=== PATIENT | male | born 1995 | race African-American/Black ===

== ENCOUNTER 2019-11-29 07:18 | Outpatient (CLI) | payer OTHER ==
--- NOTE | 2019-11-29 08:58 | MRI Report ---
Reason: PAIN IN RT ANKLE Procedure Date: 11/29/2019 Accession Number: [id number] / [id number] Procedure: MRI - Ankle RT W/O CPT Code: Final Report FULL RESULT: EXAM: RIGHT ANKLE/HINDFOOT MRI WITHOUT CONTRAST EXAM DATE: 11/29/2019 08:33 AM. CLINICAL HISTORY: Rolled his ankle while running last May. Pain along the lateral surface of the ankle. COMPARISON: None. TECHNIQUE: Multiplanar, multisequence T1-weighted and fluid-sensitive sequences of the ankle/hindfoot without contrast. Other: None. FINDINGS: Bones: There is focal bony overgrowth of the superolateral margin of the anterior process of the calcaneum. There is edema of the bony overgrowth. There are 2 nonunited bony fragments adjacent to the inferolateral margin of the talus. The anterior talocalcaneal ligament appears discontinuous, and edematous. The findings suggest a midfoot sprain with avulsion fractures of the calcaneum and talus. There is edema of the talus surrounding the sinus tarsi, also in keeping with a midfoot sprain. The tibia and fibula appear intact. Articular Cartilage: Unremarkable. Ligaments: The tibiofibular ligaments appear intact. There is mild thinning of the anterior talofibular ligament suggestive of a prior low-grade partial thickness tear. The calcaneofibular and posterior talofibular ligaments are intact. The deep and superficial deltoid and spring ligaments are intact. Anterior Tendons: The tibialis anterior, extensor hallucis longus, and extensor digitorum longus tendons are unremarkable. Medial Tendons: The tibialis posterior, flexor digitorum longus, and flexor hallucis longus tendons are unremarkable. Lateral Tendons: The peroneus brevis and longus are unremarkable. Achilles Tendon: The Achilles tendon is unremarkable. Musculature: No edema or fatty atrophy. Other: There is a small ankle joint effusion. The contents of the sinus tarsi and tarsal tunnel are unremarkable. No plantar fasciitis. The subcutaneous tissues are unremarkable. IMPRESSION: 1. Findings consistent with a prior midfoot sprain, including avulsion fractures of the adjacent margins of the calcaneum and talus, at the attachments of the anterior talocalcaneal ligament. Healed fracture of the superior margin of the anterior process of the calcaneum. 2. Low-grade partial-thickness tear of the anterior talofibular ligament. 3. Small ankle joint effusion. RADIA
== END 2019-11-29 07:19 | disposition home or self-care (01) ==
LOC: DI 07:18
PROVIDERS: ATTEND Family Medicine
DX: S93.491A Sprain of other ligament of right ankle, initial encounter (principal); M25.471 Effusion, right ankle

== ENCOUNTER 2021-11-04 08:00 | Outpatient (CLI) | payer OTHER ==
[2021-11-04 22:20] LABS: CHLAMYDIA TRACHOMATIS DNA NEGATIVE (NEGATIVE); NEISSERIA GONORRHOEAE DNA NEGATIVE (NEGATIVE)
== END 2021-11-04 08:01 | disposition home or self-care (01) ==
LOC: LAB.N 08:00
PROVIDERS: ATTEND Family Medicine
DX: N34.2 Other urethritis (principal)
CPT/HCPCS: 87491; 87591; 87661

== ENCOUNTER 2022-01-16 10:17 | Outpatient (CLI) | payer OTHER ==
[2022-01-16 11:05] VITALS: BP 154/99
--- NOTE | 2022-01-16 11:05 | SLEEP CARE CONSULTATION ---
Information from patient questionnaire entered by Eliane Méndez MA. I have reviewed and concur with the information entered by Eliane Méndez MA. This document represents the service I personally performed and the decisions made by , Phylicia Wang ARNP. History of Present Illness Service Date and Time: 01/16/2022 1017 Reason for Visit: New patient (ONSET 06/2019, NO PRIORS,) Chief Complaint: reports: Unrefreshed sleep, Snoring, Excessive daytime sleepin ess, Observed pauses in breathing, Fatigue, Frequent awakenings at night Date of Onset: 12 MONTHS Usual bedtime: 9 PM - 0200 Time it takes to fall asleep: 1 HOUR Snores at night: Yes Observed to quit breathing while asleep: Yes Sleeps alone due to snoring: No Number of times waking at night: 4-6 Reasons for waking at night: reports: Snoring, Pain, Bathroom. denies: Choking, Gasping for air Toss, Turn, or Twitch while sleeping: Yes (notices legs twitch when falling asleep) Recalls having dreams: Yes Usually gets out of bed at: 0300; weekends [id number] Feels refreshed in the morning: No Morning headache: No Sleepy or fatigued during the day: Yes (he will nod off if mind is not actively engaged in something) Ever fallen asleep while driving: No Takes day naps: No Dreams during day naps: No Prior sleep studies: No Additional HPI information: I had the pleasure of seeing MARQUISE DALEY today regarding the possibility of him having a sleep disorder. His current complaints are excessive daytime sleepiness, frequent night awakenings, observed pauses in breathing and snoring. He is concerned that he is only able to sleep 5-6 hours and he is waking up constantly during the night. His has told him he snores loudly and has pauses in breathing when sleeping. He states he is tired all the time during the day. He has had many different schedules since starting with the [employer] in 2018. He is on a day schedule this week but is going back to nights next week. When he spoke with his mother recently, she told him she was just diagnosed with SCOTTIE and is starting on a CPAP machine. - Parasomnia Symptoms Ever been unable to move upon waking from sleep: No Walks in sleep: No Talks in sleep: No Ever acted out dreams in sleep: No Ever felt weak in the knees when startled or emotional: No Bothered by creepy, crawly, restless sensations in legs: No Problems with memory or concentration: Yes (hard to concentrate on conversations or other things like reading) Subjective Initial [place] Sleepiness Scale score: 17 (01/2022) Past Medical History Past Medical History: reports: Anxiety, Other (ANKLE - BONE FRAG FROM ROLLING IT RIGHT) 2015, LEFT - KNEE Cartilage REPL. 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 Patient is and lives in . Have you smoked in the past 12 months: No Alcohol use: Yes Alcohol amount and frequency: 2 X WEEKLY Caffeine use: No Family History Family history of sleep disordered breathing: Yes Family Hx Sleep Apnea: Mother: Sleep apnea - Treated Allergies and Home Medications Known drug allergies: No Drug allergies reviewed: Yes (NKDA) Home medication list reviewed: Yes Allergy and home medication list: Supplements Whey protein shakes Multivitamin Review of Systems Review of systems same as previous: Yes (weight alternates due to body building; at weight he desires now) Cardiovascular: denies: high blood pressure Respiratory: denies: shortness of breath Gastrointestinal: denies: heartburn Neurological: denies: headaches, head trauma Psychiatric: reports: anxiety Ear/Nose/Throat: reports: wisdom teeth removed. denies: sinus problems, injury to nose, tonsillectomy Endocrine: denies: thyroid disease Musculoskeletal: reports: joint pain, neck pain, back pain Immunologic: reports: allergies to food or environment Physical Exam Vital signs obtained and entered by: Emilio MÉNDEZ [facility] Blood Pressure: 154/99 (RIGHT, PULSE 65, RESP 18, ) Heart Rate: 71 O2 Saturation: 98 (PAPER MASK) Height: 5 ft 9 in Weight: 250 lb Weight change since last visit: CYCLE WITH WEIGHT, WORKS OUT, Body Mass Index: 36.9 BMI Classification: Obese Neck circumference: 16 (INCHES) Mouth and throat: normal Soft palate: long Hard palate: normal Uvula: long Uvula visualization: 100% Mallampati Class I Tongue: normal in size Tonsils: 1+ Neck: normal w/o lymphadenopathy or thyromegaly Heart: regular rate and rhythm Lungs: clear bilaterally Impression and Plan 1. Suspected Obstructive Sleep Apnea-Hypopnea Syndrome, as suggested by a history of loud and irregular snoring, observed cessation of breath while asleep, frequent awakening during the night, unrefreshed sleep, cognitive impairment, and excessive daytime sleepiness. Narrow oropharynx and obesity are common predisposing factors for obstructive sleep apnea-hypopnea syndrome. I recommend proceeding to polysomnography to confirm the diagnosis and to assess severity. If the patient has significant sleep disordered breathing, a manual CPAP titration study will also be performed to find the optimal treatment pr essure. I informed the patient of what the sleep studies involve and after some discussion, obtained agreement to proceed. The pathophysiology of obstructive sleep apnea-hypopnea syndrome was discussed with the patient and health risks of cardiovascular and cerebrovascular disease if not treated. 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 Patient agreed to plan. * Schedule polysomnography * Avoid long distance driving or driving when feeling sleepy. * Avoid alcohol, sedative and muscle relaxant around bedtime. * Attempt to lose weight. * Review instructions provided by trained office staff on how to prepare for the sleep study. * Return for follow-up after sleep study completed. Counseling Topics: Weight loss health impact Visit Type: In Office Time Spent with Patient (minutes): 31 Provider Statement: I spent 100% of the Face to Face Visit with the patient with greater than 50% spent counseling the patient and coordination of care.
== END 2022-01-16 10:18 | disposition home or self-care (01) ==
LOC: SC 10:17
PROVIDERS: ATTEND Nurse Practitioner Family
DX: R06.83 Snoring (principal); G47.8 Other sleep disorders; R06.81 Apnea, not elsewhere classified; G47.10 Hypersomnia, unspecified; R53.83 Other fatigue; E66.9 Obesity, unspecified; Z68.36 Body mass index [BMI] 36.0-36.9, adult
CPT/HCPCS: 99203; 99212

== ENCOUNTER 2022-02-13 20:43 | Outpatient (CLI) | payer OTHER | END 2022-02-13 20:44 | disposition home or self-care (01) | LOC: SC 20:43 | PROVIDERS: ATTEND Nurse Practitioner Family | DX: G47.33 Obstructive sleep apnea (adult) (pediatric) (principal) | CPT/HCPCS: 95810 ==

== ENCOUNTER 2022-03-02 08:00 | Outpatient (CLI) | payer OTHER | END 2022-03-02 23:59 | disposition home or self-care (01) | LOC: LAB.N 08:00 | PROVIDERS: ATTEND Family Medicine | DX: N34.2 Other urethritis (principal) | CPT/HCPCS: 87086 ==

== ENCOUNTER 2022-03-10 13:34 | Outpatient (CLI) | payer OTHER ==
[2022-03-10 14:35] VITALS: BP 148/83
--- NOTE | 2022-03-10 14:35 | SLEEP CARE CONSULTATION ---
Information from patient questionnaire entered by Eliane Méndez MA. I have reviewed and concur with the information entered by Eliane Méndez MA. This document represents the service I personally performed and the decisions made by , Phylicia Wang ARNP. History of Present Illness Service Date and Time: 03/10/2022 1334 Accompanied by: Spouse Initial [place] Sleepiness Scale score: 17 (01/2022) Current [place] Sleepiness Scale score: 21 Additional HPI information: MARQUISE DALEY returns with spouse for follow up and results of the recently performed polysomnography. I explained the pathophysiology behind obstructive sleep apnea. We then spent quite a bit of time discussing different treatment options. For mild obstructive sleep apnea, surgery and oral appliance are alternatives to nasal CPAP therapy but in moderate or severe cases, nasal CPAP is the most effective and reliable treatment. Because apnea is primarily in supine position, then positional management therapy could be effective. Methods discussed such as positioning with pillows to prevent supine sleep. I reviewed the impact of weight changes on sleep apnea and strongly recommended losing weight. After some discussion, the patient opted to go with the nasal CPAP therapy. Nasal autoCPAP set at 4-15 cmH20 will be ordered with rationale explained. A manual titration study will be ordered if unable to find optimal pressure with office adjustments. I explained how CPAP machine works and what to expect when using the machine. Using CPAP every night in order to get used to it was emphasized. Patient advised to put CPAP mask on before getting into bed so as not to fall asleep without CPAP. To assist acclimation to CPAP use, it could also be used for a short time during day while reading or watching TV. The patient was instructed to call the CPAP supplier to discuss any mechanical problem that may occur. If the mask given is uncomfortable or is difficult to keep on through the night even with adjustment, contact the CPAP supplier as many will replace with another mask style if notified before 30 days. If snoring or perceives is not getting enough air or too much air from the machine, notify this office. Patient counseled not drink alcohol less than 4 hours before bedtime as it can increase snoring and apnea. Patient was cautioned about risks of drowsy driving until sleepiness symptoms resolve. Sleep Study - Results Type of Sleep Study: Polysomnography (F/U POLY, 02/13/2022 [facility], POS,) Prior sleep studies: No Polysomnography/Home Sleep Study results: IMPRESSION: The quality of the study is good. The patient had normal sleep efficiency. The sleep architecture was relatively normal as well considering the first night effect. Respiratory monitoring showed mild obstructive sleep apnea-hypopnea (AHI = 6.6) associated with oxyhemoglobin desaturation and mild hypoxia (fannie oxygen saturation of 84%). The respiratory events occurred almost exclusively during supine REM sleep (supine AHI = 12.6; non-supine = 1.51). Snore was light to moderate in intensity. There was no significant periodic leg movement of sleep. Cardiac rhythm was normal sinus rhythm without significant arrhythmia. No abnormal behavior (parasomnia) observed during the night. Allergies and Home Medications Home medication list reviewed: Yes (no changes) Review of Systems Review of systems same as previous: Yes (no changes) Physical Exam Vital signs obtained and entered by: JONATHAN Blood Pressure: 148/83 Cuff size: wrist (right) Heart Rate: 62 O2 Saturation: 97 Height: 5 ft 9 in Weight: 261 lb 12.8 oz Body Mass Index: 38.6 BMI Classification: Obese Impression and Plan 1. Obstructive Sleep Apnea-Hypopnea Syndrome, mild, with lowest oxygen saturation of 84%. Obviously this is the cause of the patients symptoms of unrefreshed sleep, and excessive daytime sleepiness. Positive pressure therapy could benefit anxiety. As mentioned above, the patient will be started on nasal autoCPAP therapy with pressure set at 4-15 cmH2O. Compliance guidelines also reviewed. A copy of compliance guidelines will be given for reference at check out. Because the apnea is more severe supine, I instructed to avoid sleeping supine using pillow positioning until able to start CPAP use. * Nasal auto CPAP therapy, pressure at 4-15 cm H2O. * Attempt to lose weight. * Avoid alcohol consumption near bedtime. * Avoid supine sleep until using CPAP. * The patient is again cautioned about driving until sleepiness completely resolves. * Return one month after CPAP obtained. I will assess response to therapy and compliance at that time. Counseling Topics: Sleeping position, Weight loss health impact Visit Type: In Office Time Spent with Patient (minutes): 26 Provider Statement: I spent 100% of the Face to Face Visit with the patient with greater than 50% spent counseling the patient and coordination of care.
== END 2022-03-10 13:35 | disposition home or self-care (01) ==
LOC: SC 13:34
PROVIDERS: ATTEND Nurse Practitioner Family
DX: G47.33 Obstructive sleep apnea (adult) (pediatric) (principal); E66.9 Obesity, unspecified; Z68.38 Body mass index [BMI] 38.0-38.9, adult
CPT/HCPCS: 99212; 99213

== ENCOUNTER 2022-05-13 12:37 | Outpatient (CLI) | payer OTHER ==
--- NOTE | 2022-05-13 15:48 | MRI Report ---
PROCEDURE: Lumbar Spine W/O INDICATIONS: LOW BACK PAIN TECHNIQUE: Noncontrast sagittal T1 spin echo and T2 fast echo, sagittal STIR, axial T1 and T2 fast spin echo thr ough the lumbar spine. In cases with scoliosis, additional coronal T2 fast spin echo may be performe d. COMPARISON: None. FINDINGS: Image quality: Excellent. Alignment and Curvature: No plain films are available for comparison. Thus, for numbering purposes, 5 lumbar type vertebral bodies will be presumed for the current report. This should be confirmed with plain film correlation prior to any lumbar spinal intervention. There is loss of normal lumbar lordo sis. Bone Marrow: Marrow is of normal overall signal. No acute vertebral body compression fractures. Mi ld reactive signal throughout the endplates of the thoracolumbar spine. Spinal Cord: Conus medullaris terminates at the lower L1 level. Visualized cord demonstrates normal signal and size. Paraspinous Soft Tissues: No paravertebral masses. T12-L1: Normal in appearance. L1-L2: Normal in appearance. L2-L3: Mild diffuse disc bulge. Mild canal stenosis. Mild bilateral foraminal stenosis. L3-L4: Mild diffuse disc bulge. Mild epidural lipomatosis. Mild canal stenosis. Mild bilateral fora barrera stenosis. L4-L5: Mild disc desiccation and diffuse disc bulge. Mild facet and ligament flavum hypertrophy. Mi ld canal stenosis. Moderate subarticular foraminal stenosis bilaterally. L5-S1: Mild bilateral facet hypertrophy. No significant canal stenosis. Moderate subarticular shey inal stenosis bilaterally. IMPRESSION: 1. Multilevel degenerative disc and facet disease, in addition to epidural lipomatosis and ligamentum flavum hypertrophy. 2. Mild multilevel canal stenoses. 3. Multilevel foraminal stenoses, worst at L4-L5 and L5-S1 where there are moderate foraminal stenose s. Reviewed by: Laura Freedman MD on 05/13/2022 3:47 PM PDT Approved by: Laura Freedman MD on 05/13/2022 3:47 PM PDT Station ID: [id number]
== END 2022-05-13 12:38 | disposition home or self-care (01) ==
LOC: DI 12:37
DX: M51.36 Other intervertebral disc degeneration, lumbar region (principal); M48.061 Spinal stenosis, lumbar region without neurogenic claudication; M47.816 Spondylosis without myelopathy or radiculopathy, lumbar region; M51.37 Other intervertebral disc degeneration, lumbosacral region; M48.07 Spinal stenosis, lumbosacral region; M47.817 Spondylosis without myelopathy or radiculopathy, lumbosacral region

== ENCOUNTER 2022-06-04 11:32 | Outpatient (CLI) | payer OTHER ==
[2022-06-04 12:06] VITALS: BP 126/74
--- NOTE | 2022-06-04 12:06 | SLEEP CARE CONSULTATION ---
Information from patient questionnaire entered by Lana Aceves. I have reviewed and concur with the information entered by Lana Aceves. This document represents the service I personally performed and the decisions made by , Phylicia Wang ARNP. History of Present Illness Service Date and Time: 06/04/2022 1132 Previous diagnosis: Mild, Obstructive Sleep Apnea-Hypopnea Syndrome AHI: 6.6 (in 2021) Reason for follow up: first compliance (SET UP 03/31/22, RESMED) Equipment type: CPAP Equipment obtained from: Other ([facility]; getting supplies) Mask style: Full face Backup mask available: No (will keep old mask when replaced) Last cushion change: 1 month Prior sleep studies: No Type of Sleep Study: Polysomnography (F/U POLY, 02/13/2022 [facility], POS,) HPI additional information: MARQUISE DALEY was diagnosed to have mild, AHI 6.6, obstructive sleep apnea- hypopnea syndrome and returned today for CPAP therapy first compliance follow- up. Sleep Study - Results Type of Sleep Study: Polysomnography (F/U POLY, 02/13/2022 [facility], POS,) Prior sleep studies: No CPAP Compliance Data - Data Reviewed with Patient Average duration of nightly device use: 2 hours 55 minutes Compliance rate %: 17 (32/60 days used) Current pressure setting (cmH2O): 4-15 (median 5.4, avg 7.9, max 8.7) Average residual AHI: 0.5 Average large leak: 1.1 Subjective Patient concerns: reports: mask discomfort, air blowing in eyes, condensation in mask/hose, nasal congestion, dry mouth, nose, throat (dry mouth and nose). denies: aerophagia, mask leak noise, epistaxis Observed to snore while using device: No Current pressure setting perceived as: comfortable On therapy, patient: reports: sleeping better, more rested overall. denies: drowsiness while driving Initial [place] Sleepiness Scale score: 17 (01/2022) Current [place] Sleepiness Scale score: 16 (06/04/22) Allergies and Home Medications Home medication list reviewed: Yes (no changes) Review of Systems Review of systems same as previous: Yes (no changes) Physical Exam Vital signs obtained and entered by: ASIA RASHID Blood Pressure: 126/74 (left arm ) Cuff size: long Heart Rate: 60 O2 Saturation: 97 Height: 5 ft 9 in Weight: 223 lb Weight change since last visit: 27 lbs loss Body Mass Index: 32.9 BMI Classification: Obese Impression and Plan 1. Obstructive Sleep Apnea-Hypopnea Syndrome, mild, with poor treatment compliance and good apnea control. On CPAP therapy, the patient has better sleep quality and is more rested overall. Patient has been having difficulty with his mask because his nose is congested and he cannot breathe through it. He chose a fullface mask and he thinks it is comfortable but sometimes he gets some air leaking into his eyes. I advised patient to use nasal saline to rinse out his nose prior to bedtime. He was also encouraged to increase the humidity since his humidity is set at 2 and heated hose at 72 degrees. His mouth has also been a little bit dry. Nasal congestion can be reduced with increasing the CPAP humidity as shown on sample device. The heated hose can be adjusted higher if condensation with higher humidity setting. Saline nasal spray may be used prior to CPAP to clear nasal secretions and wash off any nasal allergens to facilitate nasal breathing. In addition, a steamy shower before bed will often assist nasal drainage. Verbal instructions given on how to change humidity and heated hose settings with rationale explaining why to change. Patient feels the pressure has been good. The patients pressure will be changed to autoCPAP 7-10 cmH20 to reflect pressure being used. Patient advised to contact me if pressure change is uncomfortable so that it can be adjusted. Goals for apnea control discussed. Patient's apnea severity and rationale for treatment to reduce apnea, improve sleep quality and reduce cardiovascular and cerebrovascular events was reviewed. I also reviewed the benefit of consistent device use of CPAP for anxiety. 2. Obesity, unspecified. Patient has lost about 27 pounds since his last visit through diet and exercise. Currently patients BMI is 32.9. Obesity increases the risk of apnea, CPAP pressure requirements and overall health risks especially cardiovascular and diabetes. Thus patient is advised to continue to try to lose weight. * Change auto CPAP pressure to 7-10 cmH2O * Notify me if snoring with mask or feeling that the pressure is too much or too little * Attempt to lose weight * Call this office if any problems using CPAP * Return for follow up in 1-2 months, or sooner if concerns arise Counseling Topics: Spare mask, Weight loss health impact Visit Type: In Office Time Spent with Patient (minutes): 23 Provider Statement: I spent 100% of the Face to Face Visit with the patient with greater than 50% spent counseling the patient and coordination of care.
== END 2022-06-04 11:33 | disposition home or self-care (01) ==
LOC: SC 11:32
PROVIDERS: ATTEND Nurse Practitioner Family
DX: G47.33 Obstructive sleep apnea (adult) (pediatric) (principal); E66.9 Obesity, unspecified; Z68.32 Body mass index [BMI] 32.0-32.9, adult
CPT/HCPCS: 99212; 99213

== ENCOUNTER 2023-03-31 09:25 | Outpatient (CLI) | payer OTHER ==
--- NOTE | 2023-03-31 09:48 | Sleep Patient Instructions ---
Sleep Center Visit Summary - Patient Visit Information Reason for Visit: 10 month followup for PAP therapy - Patient Instructions Additional Instructions: You were here for follow up of CPAP therapy. You will be continued on CPAP therapy with pressure at 7-10 cmH2O. You should follow up with sleep care in 1-2 months. You may contact us sooner for any questions or concerns. - Clinic Information Contact: [facility] [address] [place] [phone] [email or web address] T: [phone]
--- NOTE | 2023-03-31 09:55 | SLEEP CARE CONSULTATION ---
Information from patient questionnaire entered by Christine Madrigal. I have reviewed and concur with the information entered by Christine Madrigal. This document represents the service I personally performed and the decisions made by me, Phylicia Wang ARNP. History of Present Illness Service Date and Time: 03/31/2023924 Previous diagnosis: Mild, Obstructive Sleep Apnea-Hypopnea Syndrome AHI: 6.6 (in 2021) Reason for follow up: other (10MONTH F/U SD CARD NEEDED) Equipment type: CPAP (ResMed Airsense 11, s/u 03/2022) Equipment obtained from: Other ([facility]; getting supplies) Mask style: Full face Mask brand: [id number] [employer] Backup mask available: Yes (other mask) Last cushion change: 9 months Prior sleep studies: No Type of Sleep Study: Polysomnography (F/U POLY, 02/13/2022 [facility], [place],) HPI additional information: MARQUISE DALEY was diagnosed to have mild, AHI 6.6, obstructive sleep apnea- hypopnea syndrome and returned today for CPAP therapy Ten month follow-up. 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 denies: aerophagia, air blowing in eyes, mask leak noise, condensation in mask/hose, epistaxis Observed to snore while using device: No Current pressure setting perceived as: comfortable On therapy, patient: reports: sleeping better, awakening more refreshed, being more awake and alert during the day, more rested overall. denies: drowsiness while driving Initial [place] Sleepiness Scale score: 17 (01/2022) Current [place] Sleepiness Scale score: 14 (03/31/23) Allergies and Home Medications Known drug allergies: No Drug allergies reviewed: Yes Home medication list reviewed: Yes (no changes) Review of Systems Review of systems same as previous: Yes (no changes) Physical Exam Vital signs obtained and entered by: CHRISTINE Holloway MA Blood Pressure: 144/90 (LEFT ARM) Cuff size: regular Heart Rate: 95 O2 Saturation: 99 Height: 5 ft 9 in Weight: 242 lb 9.6 oz Weight change since last visit: 9 lb gain but is loosing wieght now Body Mass Index: 35.8 BMI Classification: Obese Impression and Plan 1. Obstructive Sleep Apnea-Hypopnea Syndrome, mild, with poor treatment compliance and good apnea control. On CPAP therapy, the patient has better sleep quality and is more rested overall. 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 He is redeploying in June and has asked to be placed in a bunk close to an outlet. I reviewed his sleep study and he can do positional therapy when unable to use his CPAP, because he is in a normal range when sleeping non- supine. He voiced understanding. He has been having some nasal congestion and oral dryness when using his CPAP since he has returned from deployment. Oral dryness and nasal congestion can be reduced by adjusting humidity setting higher or heated hose lower or by adjusting both settings. Printed instructions given o n how to change humidity and heated hose settings with rationale explaining why to change. Patient's apnea severity and rationale for treatment to reduce apnea, improve sleep quality and reduce cardiovascular and cerebrovascular events was reviewed. I also reviewed the benefit of consistent device use of CPAP for anxiety. I will have him followup in 1-2 months to recheck his compliance and update supply prescription. 2. Obesity, unspecified. Currently patients BMI is 35.8. Obesity increases the risk of apnea, CPAP pressure requirements and overall health risks especially cardiovascular and diabetes. Thus patient is advised to lose weight. * Continue auto CPAP pressure at 7-10 cmH2O * Notify me if snoring with mask or feeling that the pressure is too much or too little * Attempt to lose weight * Call this office if any problems using CPAP * Return for follow up in 1-2 months, or sooner if concerns arise Counseling Topics: Spare mask, Weight loss health impact Follow up with Sleep Care in: 1-2 months Visit Type: In Office Time Spent with Patient (minutes): 23 Provider Statement: I spent 100% of the Face to Face Visit with the patient with greater than 50% spent counseling the patient and coordination of care.
[2023-03-31 10:00] VITALS: BP 144/90
== END 2023-03-31 09:26 | disposition home or self-care (01) ==
LOC: SC 09:25
PROVIDERS: ATTEND Nurse Practitioner Family
DX: G47.33 Obstructive sleep apnea (adult) (pediatric) (principal); E66.9 Obesity, unspecified; Z68.35 Body mass index [BMI] 35.0-35.9, adult
CPT/HCPCS: 99212; 99213

== ENCOUNTER 2023-05-14 08:00 | Outpatient (CLI) | payer OTHER ==
[2023-05-14 22:24] LABS: NEISSERIA GONORRHOEAE DNA NEGATIVE (NEGATIVE); TRICHOMONAS VAGINALIS DNA NEGATIVE (NEGATIVE)
[2023-05-14 22:34] LABS: CHLAMYDIA TRACHOMATIS DNA POSITIVE (NEGATIVE)
== END 2023-05-14 23:59 | disposition home or self-care (01) ==
LOC: LAB.N 08:00
PROVIDERS: ATTEND Registered Nurse
DX: N34.2 Other urethritis (principal); R36.9 Urethral discharge, unspecified
CPT/HCPCS: 87491; 87591; 87661

== ENCOUNTER 2023-06-03 13:33 | Outpatient (CLI) | payer OTHER ==
--- NOTE | 2023-06-03 16:38 | MRI Report ---
PROCEDURE: KNEE WO - LT INDICATIONS: LEFT KNEE PAIN TECHNIQUE: Noncontrast sagittal PD fast spin echo and T2 fast spin echo with fat saturation, sagittal 3-D gradie nt sequence with fat saturation; coronal T1 spin echo and PD fast spin echo with fat saturation, and axial PD fast spin echo with fat saturation through the knee. COMPARISON: None. FINDINGS: Image quality: Excellent. Menisci: Subtle signal abnormality involving posterior horn of medial meniscus is seen extending to s uperior articulating surface best seen on series 6 image 11 concerning for subtle oblique tear. The l ateral meniscus is intact. The meniscal root ligaments appear intact. Cruciate ligaments: The anterior and posterior cruciate ligaments appear intact. Medial structures: The medial collateral ligament appears mildly thickened. The posterior oblique l igament, semimembranosus tendon insertions, and oblique popliteal ligament, and meniscocapsular junct ion appear intact. Visualized portions of the pes anserinus tendons appear normal. No abnormal burs al fluid. Lateral structures: The lateral collateral ligament, long and short heads of the biceps femoris tend on appear intact. The popliteus tendon appears normal; the popliteofibular ligament appears intact. Iliotibial band appears normal. Anterior structures: The quadriceps and patellar tendons appear intact. Patellar alignment is rufino l. No femoral trochlear dysplasia or ventral trochlear prominence. No edema in the infrapatellar fa t pad. Bones and cartilage: No bone marrow contusions or fractures. Low-grade chondromalacia in medial femo ral tibial compartment is seen. Focal full-thickness cartilage defect involving apex of patella carti jie is seen series 3 image 11. No gross marrow edema. No acute fracture or dislocation. Joint space: There is physiologic knee joint fluid. No Jesus's cyst. Normal appearing synovial pli are incidentally noted. IMPRESSION: 1. Focal full-thickness cartilage defect involving apex of patella cartilage measures 4 x 4 mm in siz e. Low-grade chondromalacia in medial femoral tibial compartment. No fracture or dislocation. No sign ificant joint effusion. 2. Finding is concerning for very subtle oblique tear involving posterior horn of medial meniscus ext ending to superior articulating surface. The lateral meniscus is intact. 3. Low-grade MCL sprain. The cruciate ligaments are intact. Reviewed by: Tex Vazquez MD on 06/03/2023 4:36 PM PDT Approved by: Tex Vazquez MD on 06/03/2023 4:36 PM PDT Station ID: [id number]
== END 2023-06-03 13:34 | disposition home or self-care (01) ==
LOC: DI 13:33
DX: S83.412A Sprain of medial collateral ligament of left knee, initial encounter (principal); M94.262 Chondromalacia, left knee; M94.8X6 Other specified disorders of cartilage, lower leg; Z98.890 Other specified postprocedural states

== ENCOUNTER 2023-09-21 07:03 | Outpatient (CLI) | payer OTHER ==
--- NOTE | 2023-09-21 13:58 | MRI Report ---
PROCEDURE: KNEE WO - RT INDICATIONS: RIGHT KNEE PAIN TECHNIQUE: Noncontrast sagittal PD fast spin echo and T2 fast spin echo with fat saturation, sagittal 3-D spoile d GE with fat saturation; coronal T1 spin echo and PD fast spin echo with fat saturation, and axial P D fast spin echo with fat saturation through the knee. COMPARISON: None. FINDINGS: Image quality: Excellent. Anterior cruciate ligament: Intact. Posterior cruciate ligament: Intact. Medial collateral ligament: Thickening the proximal medial collateral ligament without surrounding e josé miguel is most likely secondary to a remote prior low-grade sprain. Lateral collateral ligament: Intact. Medial meniscus: Intact. Lateral meniscus: Intact. Medial and lateral tendons: The semimembranosus tendon insertions appear intact. Visualized portion s of the pes anserinus tendons appear normal. The popliteus tendon appears intact. Iliotibial band appears normal. Anterior structures: The patellar tendon and the distal quadriceps tendon appear intact. Borderline patella dara. There is mild lateral patellar tilting without patellar subluxation. No femoral trochle ar dysplasia or ventral trochlear prominence. Mild edema at superolateral aspect of the infrapatella r fat pad can be seen in the setting of lateral femoral condyle-patellar tendon friction syndrome. Bones: No acute trabecular bone injury or fracture. Medial femorotibial cartilage: Intact. Lateral femorotibial cartilage: Intact. Patellofemoral cartilage: Deep cartilage fissuring is seen at the medial patellar facet. Soft tissues: There is a small joint effusion. There is a small medial popliteal cyst. The musculatu re surrounding the knee is normal in bulk. IMPRESSION: 1.No acute trabecular bone injury or fracture. Cruciate ligaments are intact. No meniscal tear is see n. 2.Remote prior low-grade sprain of the proximal medial collateral ligament. 3.Deep cartilage fissuring is seen at the medial patellar facet. Articular cartilages otherwise appea r to be intact. 4.Borderline patella dara. Mild edema at superolateral aspect of the infrapatellar fat pad can be see n in the setting of lateral femoral condyle-patellar tendon friction syndrome. 5.Small joint effusion. Small medial popliteal cyst. Reviewed by: Sj Larsen MD on 09/21/2023 1:57 PM PST Approved by: Sj Larsen MD on 09/21/2023 1:57 PM PST Station ID: [id number]
== END 2023-09-21 07:04 | disposition home or self-care (01) ==
LOC: DI 07:03
PROVIDERS: ATTEND Orthopaedic Surgery
DX: M94.8X8 Other specified disorders of cartilage, other site (principal); R93.6 Abnormal findings on diagnostic imaging of limbs; R93.89 Abnormal findings on diagnostic imaging of other specified body structures; M25.461 Effusion, right knee; M71.21 Synovial cyst of popliteal space [Baker], right knee; S83.411D Sprain of medial collateral ligament of right knee, subsequent encounter